=== PATIENT | male | born 1970 | race Caucasian/White ===

== ENCOUNTER 2018-11-06 15:25 | Emergency (ER) | payer SELFPAY ==
--- NOTE | 2018-11-06 17:16 | ULT ---
FUltrasound Doppler duplex venous right lower extremity: 10/26/2018 HISTORY: Right lower extremity pain, swelling, and erythema. The slide fastener repairer notified Dr. Thapa of the positive results of DVT prior to this dictation. TECHNIQUE: Grayscale, color-flow, and spectral analysis, of major veins of right lower extremity. FINDINGS: There is incomplete of the mid and distal portions of the femoral vein, with decreased blood flow, du e to DVT. There is no DVT in the proximal portion of the femoral vein, common femoral vein, greater s aphenous vein, popliteal vein, and posterior tibial vein. IMPRESSION: Positive for nonocclusive deep venous thrombosis in the mid and distal portions of the right femoral vein..
== END 2018-11-06 18:06 | disposition home or self-care (01) ==
LOC: ERS 15:25
DX: I82.401 Acute embolism and thrombosis of unspecified deep veins of right lower extremity (principal); F32.9 Major depressive disorder, single episode, unspecified; M10.9 Gout, unspecified; I34.1 Nonrheumatic mitral (valve) prolapse; F17.210 Nicotine dependence, cigarettes, uncomplicated; Z79.01 Long term (current) use of anticoagulants; Z79.899 Other long term (current) drug therapy